=== PATIENT | male | born 1955 | race Caucasian/White ===

== ENCOUNTER 2025-01-15 14:17 | Emergency (ER) | payer MEDICARE ==
[~2025-01-15] VITALS: Ht 170.2 cm; Wt 64.9 kg
[2025-01-15] MEDS: ceFAZolin 2gm/dext,iso 50mL 50 ML IV ONE (14:49)
[2025-01-15 15:01] LABS: MEAN PLATELET VOLUME 8.5 FL (7.4-10.4); RED CELL DISTRIBUTION WIDTH 13.1 % (11.5-14.5)
[2025-01-15 15:15] LABS: CREATININE 1.27 MG/DL (0.60-1.10); TOTAL CARBON DIOXIDE 25.1 MMOL/L (24-32); eCRCL 49 ML/MIN; eGFR 56 ML/MIN
--- NOTE | 2025-01-15 15:19 | RADIOLOGY REPORT ---
EXAM: DI HAND, COMPLETE (3VW MIN) INDICATION: hand injury TECHNIQUE: 3 views of the right hand COMPARISON: None FINDINGS/IMPRESSION: There is no acute fracture, osseous malalignment, or aggressive focal osseous lesion. There is no radiographically apparent joint space narrowing.
[2025-01-15] MEDS: LIDOcaine 1% 30ml preserv. free vial SQ STA (15:26)
[2025-01-15] MEDS: TETanus/Pertussis (Acell)/Diphther VAC/PF (Tdap-Adult) 0.5ml syringe IMVAC ONE (16:36)
--- NOTE | 2025-01-15 17:12 | Physician Documentation ---
History of Present Illness ~ Chief Complaint: Wound Stated Complaint: ARM INJURY Time Seen by MD: 14:30 HPI 69 year old male was working on an engine when it fell on his right hand, crushing it and resulting in a large laceration at the base of his R thumb with profuse bleeding and exposed tendon. Denies other injury. Tetanus Within 5 Years: No Medication Reconciliation Allergies: Coded Allergies: No Known Allergies (Unverified , 01/15/25) Review of Systems All Other Systems at this time: Reviewed and Negative Physical Exam Vital Signs: RN Vital Signs have been reviewed: Yes, Temperature: 98.7, Source: Oral, Heart Rate: 72, Respiratory Rate: 16, BP: 151/68, Pulse Oximetry: 97, Weight: 64.900 Oxygen Flow Rate: 0 Physical Exam dGen: no distress HEENT: NCAT, EOMI, PERRL, MMM Pulm: no distress Cardiac: deferred Abdomen: deferred MSK: no deformity; large 8cm laceration over dorsal, radial aspect of R wrist at snuffbox with about 10cm of exposed tendon. Impaired extension of R thumb but remaining strength intact. No FB appreciated, some muscle tissue and fascia violated, mostly venous blood oozing with one small arterial bleeder. Warm digits with good capillary refill distal to injury, including thumb and pointer finger. Neuro: nonfocal Skin: w/d/i Psych: unremarkable Procedures Laceration/Wound Repair Laceration : Anesthesia: Lidocaine Volume Anesthetic (mls): 20 Prep: betadine, irrigated by physician Debrided: minimal Undermining: none Margins: flaps aligned Foreign Body: not identified Repaired: skin Wound Repaired With: sutures Suture Size/Type: 4-0, ethilon Number of Superficial Sutures: 7 Layer Closure?: No Dressing Applied: other Splint Applied?: Yes Type of Splint Applied: thumb spica Sling Applied?: Yes Tolerated Procedure Well?: yes, no complications Procedure Note Loose closure of macerated wound to base of R thumb while covering exposed tendon. I irrigated the patient's wound with 1.5 liters of betadine-infused sterile saline, explored the wound, and did not appreciate retained foreign bodies. Anesthetized with local lidocaine. It was closed loosely with about 7 sutures in horizontal mattress and simple-interrupted fashion. Dressed with xeroform and bulky pressure dressing, wrist splint, and sling. Progress Results/Orders Results/Orders Orders - BARTOLOME SOUZA MD Hand, Complete (3vw Min) (01/15/25 14:24) Completed Orders - BARTOLOME SOUZA MD Hand, Complete (3vw Min) (01/15/25 14:24) Cefazolin 2gm/Dext,Iso 50ml (Cefazolin 2 (01/15/25 14:30) Cbc/Diff (01/15/25 14:35) CMP (01/15/25 14:35) Lidocaine 1% 30ml Vial (Xylocaine 1% Via (01/15/25 14:52) Tetanus/Pertuss/Diph Acell/Pf (Boostrix (01/15/25 16:30) Medications Received in ER Medications (Trade) Dose Ordered Sig/Dennis Route PRN Reason Start Time Stop Time Status Last Admin Dose Admin Cefazolin Sodium/ Dextrose 50 ml @ 100 mls/hr ONCE ONCE IV 01/15/25 14:30 01/15/25 14:59 DC 01/15/25 14:49 100 MLS/HR (Boostrix vaccine syringe) 0.5 ml ONCE ONCE IMVAC 01/15/25 16:30 01/15/25 16:31 DC 01/15/25 16:36 0.5 ML Vital Signs 01/15/25 01/15/25 01/15/25 01/15/25 14:22 14:31 14:53 15:27 Temp 98.7 Pulse 77 72 71 Resp 18 16 16 B/P (MAP) 188/85 186/81 (116) 180/81 (114) Pulse Ox 98 98 97 O2 Flow Rate 0 0 0 01/15/25 01/15/25 16:13 16:54 Pulse 71 72 Resp 16 B/P (MAP) 158/65 (96) 151/68 (95) Pulse Ox 97 97 O2 Flow Rate 0 0 Laboratory Tests Test 01/15/25 14:45 01/15/25 14:53 Sodium Level 137 Potassium Level 5.4 H Chloride Level 106 Carbon Dioxide Level 25.1 Anion Gap 6 L Blood Urea Nitrogen 17 Creatinine 1.27 H Estimated GFR/1.73 m2 56 BUN/Creatinine Ratio 13.4 Glucose Level 271 H Calcium Level 8.1 L Total Bilirubin 0.6 Aspartate Amino Transf (AST/SGOT) 19 Alanine Aminotransferase (ALT/SGPT) 22 Alkaline Phosphatase 64 Total Protein 6.8 Albumin 3.7 Globulin 3.1 Albumin/Globulin Ratio 1.2 Chemistry Comments White Blood Count 4.7 Red Blood Count 3.83 L Hemoglobin 11.4 L Hematocrit 33.3 L Mean Corpuscular Volume 86.9 Mean Corpuscular Hemoglobin 29.9 Mean Corpuscular Hemoglobin Concent 34.3 Red Cell Distribution Width 13.1 Platelet Count 128 L Mean Platelet Volume 8.5 Neutrophils (%) (Auto) 57.5 Lymphocytes (%) (Auto) 23.9 Monocytes (%) (Auto) 9.3 Eosinophils (%) (Auto) 8.1 H Basophils (%) (Auto) 1.2 H Neutrophils # (Auto) 2.7 Lymphocytes # (Auto) 1.1 Monocytes # (Auto) 0.4 Eosinophils # (Auto) 0.4 Basophils # (Auto) 0.1 CBC Comment Medical Decision Making Additional information obtaine: family Findings 69 year old male with macerated crush wound to R hand. Xray did not demonstrate fracture, and spoke with Dr. Tinajero who recommended washout and loose closure, keeping the patient's exposed tendon closed. I cleansed, anesthetized, and sutured the wound, and we dressed it with a bulky, occlusive pressure dressing. We will observe him for an hour to make sure that he does not continue to bleed through his dressing and send him to see Dr. Tinajero for operative planning on Friday. Provided IV dose cefazolin 2g. Will provide oral antibiotics and pain medications. Return precautions including increasing pain/bleeding through dressing provided to patient and his family member. Differential Dx:Considerations: Include: Abrasion, Avulsion, Contusion, Laceration, Fracture, Hematoma, Neurovascular injury, Retained foreign body Departure Disposition: HOME / SELF CARE / HOMELESS (s) Impression: Primary Impression: Crush injury of hand Additional Impression: Tendon injury Condition: Stable Discharge Instructions: Sutured Wound Care Referrals: NO PRIMARY CARE PROVIDER (PCP) MARIELA TINAJERO Jr., MD Prescriptions Cephalexin*Monohydrate* (Keflex*) 500 Mg Capsule 1 CAP PO QID for 7 Days, #28 CAP Prov: BARTOLOME SOUZA MD 01/15/25 Hydrocodone Bit/Acetaminophen 5/325 MG ([place] 5/325 MG) 5 Mg/325 Mg Tablet 1 TAB PO Q6H PRN for pain, #14 TAB Prov: BARTOLOME SOUZA MD 01/15/25 Education Educated: Patient Educated regarding: diagnosis, treatment, prognosis, need for follow up (d) Signature Scribe Signature: . Attestation: . BARTOLOME SOUZA MD Jan 15, 2025 17:12
[2025-01-15] MEDS ORDERED: CEPH-585 PO (17:27)
[2025-01-15] MEDS ORDERED: HYDR-3965 PO (17:27)
[2025-01-15 17:55] VITALS: TEMP 98.7
[2025-01-15 18:02] VITALS: BP 155/71; PULSE 73; RESP 16; O2SAT 98
== END 2025-01-15 18:54 | disposition home or self-care (01) ==
LOC: ER 14:18
DX: S61.411A Laceration without foreign body of right hand, initial encounter (principal); W20.8XXA Other cause of strike by thrown, projected or falling object, initial encounter; Y93.89 Activity, other specified; Y92.89 Other specified places as the place of occurrence of the external cause; Y99.8 Other external cause status
CPT/HCPCS: 12004; 36415; 73130; 80053; 85025; 90471; 90715; 96365; 99285; A6223; J0690; A4565; A6258; A6446; A6449